=== PATIENT | female | born 1985 | race Two or more races ===

== ENCOUNTER 2016-07-17 10:31 | Day surgery (SDC) | payer OTHER ==
[~2016-07-17] VITALS: Ht 154.9 cm; Wt 66.0 kg
[~2016-07-17 10:31] MED LIST: BIOT5TAB PO; NORE-122 PO
[2016-07-17] MEDS ORDERED: SCOPOLAMINE PATCH, 1.5MG PATCH.TD72 TD ONE (12:17)
[2016-07-17] MEDS ORDERED: MIDAZOLAM 1 MG/ML, 2ML ONE ×2 (12:26→13:59)
[2016-07-17] MEDS ORDERED: FENTANYL PF 250 MCG/5ML ONE (12:26)
[2016-07-17] MEDS ORDERED: NEOSTIGMINE 1 MG/ML, 10ML ONE (12:35)
[2016-07-17] MEDS ORDERED: ROCURONIUM 10 MG/ML ONE (12:35)
[2016-07-17] MEDS ORDERED: METOCLOPRAMIDE 5 MG/ML, 2ML ONE (12:35)
[2016-07-17] MEDS ORDERED: GLYCOPYRROLATE 0.2MG/1ML ONE (12:35)
[2016-07-17] MEDS ORDERED: PROPOFOL 10 MG/ML, 20ML ONE (12:35)
[2016-07-17] MEDS ORDERED: ONDANSETRON 2MG/ML, 2ML ONE (12:35)
[2016-07-17] MEDS ORDERED: DEXAMETHASONE 4 MG/ML, 1ML ONE (12:35)
[2016-07-17] MEDS ORDERED: KETOROLAC 30 MG/1 ML ONE (12:35)
[2016-07-17] MEDS ORDERED: CEFAZOLIN 1,000 MG ONE (12:35)
[2016-07-17] MEDS ORDERED: BUPIVACAINE/PF-EPI 0.25% 1:200K ONE (12:55)
[2016-07-17] MEDS ORDERED: OXYcodone 5 MG/5 ML ORAL.SOL UDC ONE (13:59)
[2016-07-17] MEDS ORDERED: FENTANYL PF 100 MCG/2ML ONE (13:59)
[2016-07-17] MEDS ORDERED: ACETAMINOPHEN 325 MG TABLET ONE (13:59)
[2016-07-17] MEDS ORDERED: ACETAMINOPHEN 650 MG/20.3 ML UDC ONE (13:59)
[2016-07-17] MEDS: FENTANYL PF 100 MCG/2ML IV PRN ×3 (14:02→14:34)
[2016-07-17] MEDS: MIDAZOLAM 1 MG/ML, 2ML IV PRN ×3 (14:12→14:34)
[2016-07-17] MEDS ORDERED: hydrALAzine 20 MG/ML, 1ML IV PRN (14:30)
[2016-07-17] MEDS ORDERED: ACETAMINOPHEN 325 MG TABLET PO PRN (14:30)
[2016-07-17] MEDS ORDERED: ONDANSETRON 2MG/ML, 2ML IVPush PRN (14:30)
[2016-07-17] MEDS ORDERED: LABETALOL 5MG/ML, 20ML IV PRN (14:30)
[2016-07-17] MEDS ORDERED: OXYcodone 5 MG/5 ML ORAL.SOL UDC PO PRN (14:30)
[2016-07-17] MEDS ORDERED: MEPERIDINE/PF 25MG/0.5ML IVPush PRN (14:30)
[2016-07-17] MEDS ORDERED: PROMETHAZINE 25 MG/ML, 1ML IV PRN (14:30)
[2016-07-17] MEDS ORDERED: HYDROmorphone 1 MG/ML, 1ML IV PRN (14:30)
[2016-07-17] MEDS ORDERED: ALBUTEROL/IPRATROPIUM 2.5MG/0.5MG, 3 ML NPPB PRN (14:30)
[2016-07-17] MEDS ORDERED: MEPERIDINE/PF 25MG/0.5ML ONE (14:36)
[2016-07-17] MEDS ORDERED: LACTATED RINGERS 1,000 ML IV SCH (15:10)
[2016-07-19 08:26] LABS: HCG UR OBC PASS
== END 2016-07-17 16:55 | disposition home or self-care (01) ==
LOC: OUT 10:31
PROVIDERS: ATTEND Obstetrics & Gynecology
DX: N80.3 Endometriosis of pelvic peritoneum (principal)
CPT/HCPCS: 36415; 58662; 81025; 86850; 86900; 88304; J0690; J1100; J1885; J2175; J2250; J2405; J2704; J2710; J2765; J3010; J7120; J3490